=== PATIENT | male | born 1985 | race Caucasian/White ===

== ENCOUNTER 2020-06-04 15:56 | Observation (INO) | payer OTHER ==
[~2020-06-04] VITALS: Ht 170.2 cm; Wt 62.3 kg
[2020-06-04] MEDS ORDERED: ONDANSETRON PF 4 MG/2 ML VIAL. ONE (17:23)
[2020-06-04] MEDS ORDERED: IV NORMAL SALINE 1,000ML 1,000 ML IV ONE ×2 (17:30→18:30)
[2020-06-04] MEDS ORDERED: ONDANSETRON PF 4 MG/2 ML VIAL. IVP ONE (17:30)
[2020-06-04 17:52] LABS: BASO % 1 % (0-3); EOS # 0.2 x10^3/uL (0.0-0.7); EOS % 5 % (0-3); HEMATOCRIT 47.3 % (39.0-53.0); HEMOGLOBIN 16.4 g/dL (13.0-17.5); LYMPH # 1.4 x10^3/uL (1.0-4.8); LYMPH % 30 % (24-48); MEAN CORPUSCULAR HEMOGLOBIN 32 pg (25-35); MEAN CORPUSCULAR HGB CONC 35 g/dL (31-37); MEAN CORPUSCULAR VOLUME 91 fL (79-100); MONO # 0.4 x10^3/uL (0.0-1.1); MONO % 8 % (0-9); NEUT # 2.7 x10^3uL (1.8-7.7); NEUT % 57 % (31-73); PLATELET COUNT 238 x10^3/uL (140-400); RED BLOOD COUNT 5.21 x10^6/uL (4.30-5.70); RED CELL DISTRIBUTION WIDTH 14.4 % (11.5-14.5); WHITE BLOOD COUNT 4.8 x10^3/uL (4.0-11.0)
--- NOTE | 2020-06-04 18:05 | PHYS DOC ---
Past History Past Medical History: Cancer Additional Past Medical Histor: ulcerative colitis, lymphoma of small bowel, PTSD (JOB RAMSEY APRN) Past Surgical History: No Surgical History (JOB RAMSEY APRN) Smoking: Cigarettes (JOB RAMSEY APRN) General Adult EDM: Chief Complaint: ABDOMINAL PAIN HPI: HPI: Patient is a 35-year-old male who presents to the emergency department today with complaints of nausea, vomiting, and diarrhea. Patient states his symptoms started 4 days ago as diarrhea. He states he has not had diarrhea for the past 3 days but he has not been unable to keep any fluids down. He denies any blood in his stool or his emesis. Patient denies any fever, cough, shortness of breath, body aches, chest pain, or palpitations. He complains of diffuse abdominal pain. Patient reports history of ulcerative colitis and having lymphoma in his small bowel. Patient reports he was diagnosed with the cancer in his small bowel last fall, he reports that he is not under treatment for this cancer he was told that it is very slow moving. Patient denies any known COVID- 19 exposure. He currently rates his pain a 10 out of 10 on the pain scale, he denies any alleviating factors. (JOB RAMSEY APRN) Review of Systems: Review of Systems: Complete ROS is negative unless otherwise noted in HPI. (JOB RAMSEY APRN) Current Medications: Current Meds: Current Medications Medications (Trade) Dose Ordered Sig/Brenda Start Time Stop Time Status Last Admin Dose Admin Ondansetron HCl (Zofran) 4 mg 1X ONCE 06/04/20 17:30 06/04/20 17:47 DC Sodium Chloride 1,000 ml @ 1,000 mls/hr 1X ONCE 06/04/20 17:30 06/04/20 18:29 (JOB RAMSEY APRN) Allergies: Allergies: Allergies Coded Allergies Type Severity Reaction Last Updated Verified peanut Allergy Unknown 06/04/20 Yes (JOB RAMSEY APRN) Physical Exam: PE: See Above Constitutional: Well developed, well nourished, moderate distress, ill- appearing, appears frail HENT: Normocephalic, atraumatic, bilateral external ears normal, nose normal; dry mucous membranes. [] Eyes: PERRLA, EOMI, conjunctiva normal, no discharge. [] Neck: Normal range of motion, no stridor. [] Cardiovascular:Heart rate regular rhythm Lungs & Thorax: Respirations even and unlabored, no retractions, no respiratory distress Abdomen: soft, diffuse tenderness to palpation, no rebound tenderness, no guarding, no palpable mass Skin: Warm, dry, no erythema, no rash. [] Extremities: No cyanosis, ROM intact, no edema. [] Neurologic: Alert and oriented X 3, normal motor, normal sensory no focal deficits noted. [] Psychologic: Affect normal, judgement normal, mood normal. [] (JOB RAMSEY APRN) EKG: EKG: [] (JOB RAMSEY APRN) Radiology/Procedures: Radiology/Procedures: PROCEDURE: CT ABD PELV W/ IV CONTRST ONLY CT SCAN OF THE ABDOMEN AND PELVIS WITH IV CONTRAST. History: Reason: Left sided abdominal pain, N/V/D: Comparison:None. Procedure: Contiguous axial images of the abdomen and pelvis were performed after the administration of 75 cc of Omni 300 IV contrast. Oral contrast: No. Findings: The gallbladder is normal. The appendix is normal. The prostate is not significantly enlarged. Liver: Hypoattenuating Spleen: Unremarkable Pancreas: Unremarkable Adrenal Glands: Unremarkable Kidneys: Unremarkable There is no mass or lymphadenopathy. There is no free air. There is no free fluid. The urinary bladder appears normal. Impression: Fatty infiltration of the liver. No acute findings. End impression[] (JOB RAMSEY APRN) Heart Score: Risk Factors: Risk Factors: DM, Current or recent (<one month) smoker, HTN, HLP, family history of CAD, obesity. Risk Scores: Score 0 - 3: 2.5% MACE over next 6 weeks - Discharge Home Score 4 - 6: 20.3% MACE over next 6 weeks - Admit for Clinical Observation Score 7 - 10: 72.7% MACE over next 6 weeks - Early Invasive Strategies (JOB RAMSEY APRN) Course & Med Decision Making: Course & Med Decision Making Pertinent Labs and Imaging studies reviewed. (See chart for details) 2030-spoke with Dr. Wood who is the admitting physician, and care was assumed following discussion of patient. Will admit patient for intractable nausea vomiting, and abdominal pain. Will do urine drug screen, CRP, and LDH as requested. Patient's vital signs stable. Patient remains afebrile, appears nontoxic, respirations even and unlabored. Patient will be admitted to the med/surge floor. Patient's case and plan of care also discussed with Dr. Griffiths [] (JOB RAMSEY APRN) Dragon Disclaimer: Dragon Disclaimer: This electronic medical record was generated, in whole or in part, using a voice recognition dictation system. (JOB RAMSEY APRN) Departure Departure: Impression: Primary Impression: Intractable nausea and vomiting Additional Impression: Abdominal pain Qualified Codes: R10.84 - Generalized abdominal pain Disposition: ADMITTED INPT THIS HOSP Admitting Physician: Xenia Wood (JOB RAMSEY APRN) Condition: STABLE Referrals: PCP,UNKNOWN (PCP) Attending Signature Attending Signature I have reviewed the PA/FOUNDRY TECHNICIAN's note and plan of care. I was available for consultation as needed during the patient's visit in the emergency department. I agree with the clinical impression, plan, and disposition. (BART GRIFFITHS DO) JOB RAMSEY APRN Jun 04, 2020 18:05 BART GRIFFITHS DO Jun 04, 2020 23:12
[2020-06-04 18:08] LABS: CALCIUM 9.9 mg/dL (8.5-10.1); CREATININE 0.8 mg/dL (0.7-1.3); GFR 111.3; POTASSIUM 3.6 mmol/L (3.5-5.1)
[2020-06-04 18:13] LABS: ALBUMIN 4.4 g/dL (3.4-5.0); ALBUMIN/GLOBULIN RATIO 1.3 (1.0-1.7); MAGNESIUM 2.2 mg/dL (1.8-2.4); TOTAL BILIRUBIN 0.5 mg/dL (0.2-1.0); TOTAL PROTEIN 7.9 g/dL (6.4-8.2)
[2020-06-04] MEDS ORDERED: FAMOTIDINE 20 MG/2 ML VIAL IVP ONE (18:30)
[2020-06-04] MEDS ORDERED: MORPHINE SULFATE 4 MG/ML DISP.SYRIN. IV ONE (18:30)
[2020-06-04] MEDS ORDERED: IOHEXOL 300 MG/ML 75 ML VIAL. IV ONE (19:15)
[2020-06-04] MEDS ORDERED: LIDO:MAALOX 1:1 20 ML SINGLE DOSE. PO ONE (19:15)
[2020-06-04 19:28] LABS: BILIRUBIN,URINE NEG (NEG); CLARITY,URINE CLEAR; COLOR,URINE YELLOW; GLUCOSE,URINE NEG (NEG)
[2020-06-04 19:29] LABS: BACTERIA,URINE 0 /HPF (0-FEW); NITRITE,URINE NEG (NEG); RBC,URINE 0 /HPF (0-2); SQUAMOUS EPITHELIAL CELL,UR OCC /LPF; UROBILINOGEN,URINE 0.2 mg/dL (0.2 mg/dL); WBC,URINE 0 /HPF (0-4)
[2020-06-04] MEDS ORDERED: PROCHLORPERAZINE 10 MG/2 ML VIAL. IV ONE (19:45)
--- NOTE | 2020-06-04 19:58 | RAD ---
CT SCAN OF THE ABDOMEN AND PELVIS WITH IV CONTRAST. History: Reason: Left sided abdominal pain, N/V/D: Comparison:None. Procedure: Contiguous axial images of the abdomen and pelvis were performed after the administration of 75 cc o f Omni 300 IV contrast. Oral contrast: No. Findings: The gallbladder is normal. The appendix is normal. The prostate is not significantly enlarged. Liver: Hypoattenuating Spleen: Unremarkable Pancreas: Unremarkable Adrenal Glands: Unremarkable Kidneys: Unremarkable There is no mass or lymphadenopathy. There is no free air. There is no free fluid. The urinary bladder appears normal. Impression: Fatty infiltration of the liver. No acute findings. End impression PQRS Compliance Statement: One or more of the following individualized dose reduction techniques were utilized for this examinat ion: 1. Automated exposure control 2. Adjustment of the mA and/or kV according to patient size 3. Use of iterative reconstruction technique Electronically signed by: Norm Pena III, MD (06/04/2020 7:56 PM) [facility]
[2020-06-04 20:51] LABS: BARBITURATES NEG (NEG); BENZODIAZEPINES NEG (NEG); CANNABINOIDS NEG (NEG); COCAINE NEG (NEG); METHADONE NEG (NEG); OPIATES NEG (NEG); PHENCYCLIDINE NEG (NEG)
[2020-06-04 20:52] LABS: AMPHETAMINE/METHAMPHETAMINE NEG (NEG)
[2020-06-04 20:53] LABS: C REACTIVE PROTEIN < 0.5 mg/L (0-3.3); LACTATE DEHYDROGENASE 180 U/L (85-227)
[2020-06-04 20:58] VITALS: BP 119/76
[2020-06-04] MEDS: IV NORMAL SALINE 1,000ML 1,000 ML IV SCH (21:35)
--- NOTE | 2020-06-05 00:03 | NUR ---
The patient, BRIAN RODRIGUEZ, 35 y/o, M admitted by KAREN GUSMAN MD, was given written information regarding hospital policies, unit procedures and contact persons. Valuables were checked and vital signs obtained. PT with abdominal pain for 1 week, increasing with nausea and vomiting today. PT is visiting his mother from [place]. Mother and step-father are COVID+. PT had a COVID swab performed Monday, 05/29, resulted negative 06/[facility]. PT is unsure of dosages of medications and exact medications. Call to be placed to pharmacy when open in am.
[2020-06-05] MEDS: MORPHINE SULFATE 4 MG/ML DISP.SYRIN. IVP PRN ×2 (00:21→05:42)
[2020-06-05] MEDS: ONDANSETRON PF 4 MG/2 ML VIAL. IVP PRN ×2 (03:59→10:51)
[2020-06-05] MEDS: IV NORMAL SALINE 1,000ML 1,000 ML IV SCH (05:38)
[2020-06-05 06:16] VITALS: BP 112/71
[2020-06-05] MEDS ORDERED: HYDROcodone/APAP 5/325MG 1 TAB TABLET PO PRN (08:30)
[2020-06-05] MEDS ORDERED: MORPHINE SULFATE 4 MG/ML DISP.SYRIN. IVP PRN (08:30)
[2020-06-05 10:36] VITALS: BP 109/71
--- NOTE | 2020-06-05 14:32 | NUR ---
PATIENT IS DISCHARGED HOME. DISCHARGE INSTRUCTION REVIEWED, PATIENT VERBALIZED UNDERSTANDING. PATIENT LEFT ROOM VIA AMBULATION ACCOMP BY STAFF. PATIENT TAKEN HOME MY FAMILY MEMBER VIA PERSONAL VEHICLE.
--- NOTE | 2020-06-05 14:43 | HP ---
ADMIT DATE: HISTORY OF PRESENT ILLNESS: The patient is a 35-year-old male patient who came to the Emergency Room complaining of nausea, vomiting and diarrhea. He stated that the patient has ____ symptoms started about 4 days ago with diarrhea. He stated that he has not had diarrhea for the past 3 days, but has not been able to keep any fluids down. Denied any blood in his stool or his emesis. Denied any fever, cough, shortness of breath, body ache, chest pain or palpitation. Did complain of diffuse abdominal pain. 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 The patient reports he was diagnosed with the cancer in his small bowel last fall. Reports that he is not under treatment for this cancer as he was told it was very slow moving. The patient denies any history of exposure to COVID-19. He currently rates his pain as about 10/10 on the pain scale. He denied any alleviating factors. He was extensively investigated in the Emergency Room and has had lab work and CT scan of the abdomen and was admitted. Continued IV fluid, IV pain medication, antiemetic. PAST MEDICAL HISTORY: According to him, the patient is known to have hypertension, marginal cell lymphoma, ulcerative colitis, Ronquillo's esophagus. PAST SURGICAL HISTORY: Remarkable for esophagogastroduodenoscopy x 3 and colonoscopy x 2. ALLERGIES: He has no known drug allergies. MEDICATIONS: He is currently on lisinopril, Imitrex, Nexium and budesonide. FAMILY HISTORY: He has one brother older and healthy. Both parents are alive and healthy. SOCIAL HISTORY: , has no children. Quit smoking 4-5 years ago. Drinks alcohol occasionally. He does not have used any drugs. He is a retired based on his medical condition. He is now a student studying Economics. REVIEW OF SYSTEMS: As per history of present illness. PHYSICAL EXAMINATION: GENERAL: On arrival to the Emergency Room, he looked well and was clearly in no apparent respiratory distress. No pallor, jaundice, cyanosis or thyromegaly. No jugular venous distention. No limb edema. VITAL SIGNS: His heart rate was 55, blood pressure was 112/71, temperature 97.4, respiratory rate was 16, and oxygen saturation was 99% on room air. HEAD, EYES, EARS, NOSE AND THROAT: Showed normocephalic, atraumatic. NECK: Supple. HEART: Showed normal first and second heart sounds. No gallop, rub or murmur. CHEST: Clear to auscultation. No crepitation or rhonchi. ABDOMEN: Distended, soft, nontender. No guarding or rigidity. No organomegaly. All hernial orifice intact. Bowel sounds normal. NEUROLOGIC: He was awake and alert x 3. Normal motor and sensory function. LABORATORY DATA: His lab work on arrival showed a white cell count of 4800, hemoglobin 16, hematocrit 47, MCV 91, and platelet count 238,000. Serum sodium was 143, potassium 3.6, chloride 100, bicarbonate 33, anion gap of 10, BUN 7, creatinine 0.8, estimated GFR was 111. His glucose was 80, lactic acid was 3.7, calcium was 9.9, magnesium was 2.2. Total bilirubin and alkaline phosphatase is normal. AST, ALT are elevated. His lactate dehydrogenase was only 180. C-reactive protein was 0.5. Total protein 7.9, albumin was 4.4. Serum lipase was 72. Urinalysis was essentially unremarkable and toxic screen was positive for alcohol, although it was only qualitative, not quantitative. IMAGING DATA: The patient has a CT scan of the abdomen and pelvis, which showed that the patient's gallbladder is normal. The appendix is normal. The prostate is not significantly enlarged. His liver, spleen, pancreas, adrenal glands and kidneys are unremarkable. There are no masses or lymphadenopathy. There is no free air. No free fluid. The urinary bladder appears normal. The liver is hypoattenuating and only abnormality is probably fatty infiltration of the liver, but no acute findings. ASSESSMENT AND PLAN: The patient was admitted and was started on IV fluid, IV in the form of normal saline at 125. He has had hydrocodone and ondansetron. We will obviously follow him closely and decide on further management accordingly. KAREN GUSMAN MD DR: BHARAT/cony JOB#: [id number] / [id number]
--- NOTE | 2020-06-05 14:46 | DS ---
DATE OF DISCHARGE: 06/04/2020 HOSPITAL COURSE: The patient was admitted yesterday with recurrent bouts of nausea, vomiting, was started on IV fluid, antiemetic and pain medication. He did very well. He actually ate his breakfast and lunch without any difficulty. PHYSICAL EXAMINATION: GENERAL: When I saw him this afternoon, he looked well and was clearly in no apparent respiratory distress. No pallor, jaundice, cyanosis, or thyromegaly. No jugular venous distention or limb edema. VITAL SIGNS: His heart rate was 74, blood pressure was 109/71, temperature was 99.3, respiratory rate was 18 and oxygen saturation was 97%. HEAD, EYES, EARS, NOSE AND THROAT: Showed normocephalic, atraumatic. NECK: Supple. HEART: Showed normal first and second heart sounds. No gallop, rub or murmur. CHEST: Clear to auscultation. No crepitation or rhonchi. ABDOMEN: Slightly distended, soft, nontender. NEUROLOGIC: He is grossly intact. He has been up and about without any complaint. As all his lab work are within normal range, his CT scan was unremarkable, his LDH was normal and C-reactive protein only 0.5 mg, the patient was discharged home to continue on all his medications including his Nexium, lisinopril, Imitrex and budesonide. FINAL DISCHARGE DIAGNOSES: Nausea and vomiting, resolved. The patient carries a diagnosis of hypertension, marginal cell lymphoma, ulcerative colitis and Ronquillo's esophagus. KAREN GUSMAN MD DR: BHARAT/cony JOB#: [id number] / [id number]
== END 2020-06-05 14:30 | disposition home or self-care (01) ==
LOC: ER 15:56 → 1 SOUTH 20:30 → ER 20:46
PROVIDERS: ADMIT Internal Medicine; ATTEND Internal Medicine
DX: R11.2 Nausea with vomiting, unspecified (principal); R19.7 Diarrhea, unspecified; R10.84 Generalized abdominal pain; I10 Essential (primary) hypertension; C88.4 Extranodal marginal zone B-cell lymphoma of mucosa-associated lymphoid tissue [MALT-lymphoma]; K51.90 Ulcerative colitis, unspecified, without complications; K22.70 Barrett's esophagus without dysplasia; K76.0 Fatty (change of) liver, not elsewhere classified; E11.9 Type 2 diabetes mellitus without complications; F43.10 Post-traumatic stress disorder, unspecified; E78.5 Hyperlipidemia, unspecified; Z87.891 Personal history of nicotine dependence; Z98.890 Other specified postprocedural states; Z79.899 Other long term (current) drug therapy
CPT/HCPCS: 36415; 74177; 80053; 80307; 81001; 83605; 83615; 83690; 83735; 85025; 86140; 96361; 96374; 96375; 96376; 99285; G0378; J0780; J2270; J2405; J3490; J7030; Q9967; G0379

== ENCOUNTER 2020-06-07 00:41 | Emergency (ER) | payer OTHER ==
[~2020-06-07] VITALS: Ht 170.2 cm; Wt 61.3 kg
--- NOTE | 2020-06-07 01:13 | PHYS DOC ---
Past History Past Medical History: Cancer Additional Past Medical Histor: ulcerative colitis, lymphoma of small bowel, PTSD Past Surgical History: No Surgical History Smoking: Cigarettes Alcohol Use: Occasionally Adult General Chief Complaint Chief Complaint: ABDOMINAL PAIN HPI HPI Patient is a 35-year-old male with a past medical history of Crohn's disease, who was discharged from the hospital 2 days ago who presents to the emergency department with abdominal pain. States when he was discharged 2 days ago he was feeling better but over the last couple of days he has began to have symptoms again including generalized abdominal pain, 7 out of 10, sharp in nature with an episode of nonbloody nonbilious emesis. States he had 2 episodes of diarrhea/soft stool. Denies any fevers, Covid/flu symptoms other than noted, chest pain, shortness of breath, dysuria, hematuria or blood in the stool. States he is here in [place] visiting his mom and lives in [place]. States he does have a GI doc in [place]. Review of Systems Review of Systems Review of systems otherwise unremarkable except noted in HPI. Allergies Allergies Allergies Coded Allergies Type Severity Reaction Last Updated Verified peanut Allergy Unknown 06/04/20 Yes Physical Exam Physical Exam Constitutional: Well developed, well nourished, no acute distress, non-toxic appearance. [] HENT: Normocephalic, atraumatic, oropharynx moist, no oral exudates, nose normal. [] Eyes: PERRLA, EOMI, conjunctiva normal, no discharge. [] Neck: Normal range of motion, no tenderness, supple, no stridor. [] Cardiovascular:Heart rate regular rhythm, no murmur [] Lungs & Thorax: Bilateral breath sounds clear to auscultation [] Abdomen: Bowel sounds normal, soft, umbilicus and generalized tenderness with no rebound or guarding, negative Yeager's, negative McBurney's no masses, no pulsatile masses. [] Skin: Warm, dry, no erythema, no rash. [] Back: No tenderness, no CVA tenderness. [] Extremities: No tenderness, no cyanosis, no clubbing, ROM intact, no edema. [] Neurologic: Alert and oriented X 3, normal motor function, normal sensory function, no focal deficits noted. [] Psychologic: Affect normal, judgement normal, mood normal. [] Current Patient Data Lab Results Laboratory Tests Test 06/07/20 00:57 06/07/20 01:40 Urine Collection Type Unknown Urine Color Yellow Urine Clarity Clear Urine pH 8.5 Urine Specific Denhoff 1.020 Urine Protein Neg (NEG-TRACE) Urine Glucose (UA) Neg mg/dL (NEG) Urine Ketones (Stick) Neg mg/dL (NEG) Urine Blood Trace (NEG) Urine Nitrite Neg (NEG) Urine Bilirubin Neg (NEG) Urine Urobilinogen Dipstick 0.2 mg/dL (0.2 mg/dL) Urine Leukocyte Esterase Neg (NEG) Urine RBC Rare /HPF (0-2) Urine WBC 0 /HPF (0-4) Urine Squamous Epithelial Cells Occ /LPF Urine Bacteria 0 /HPF (0-FEW) White Blood Count 4.4 x10^3/uL (4.0-11.0) Red Blood Count 4.58 x10^6/uL (4.30-5.70) Hemoglobin 14.4 g/dL (13.0-17.5) Hematocrit 42.7 % (39.0-53.0) Mean Corpuscular Volume 93 fL (79-100) Mean Corpuscular Hemoglobin 31 pg (25-35) Mean Corpuscular Hemoglobin Concent 34 g/dL (31-37) Red Cell Distribution Width 14.8 % (11.5-14.5) Platelet Count 196 x10^3/uL (140-400) Neutrophils (%) (Auto) 57 % (31-73) Lymphocytes (%) (Auto) 28 % (24-48) Monocytes (%) (Auto) 9 % (0-9) Eosinophils (%) (Auto) 6 % (0-3) Basophils (%) (Auto) 1 % (0-3) Neutrophils # (Auto) 2.5 x10^3uL (1.8-7.7) Lymphocytes # (Auto) 1.2 x10^3/uL (1.0-4.8) Monocytes # (Auto) 0.4 x10^3/uL (0.0-1.1) Eosinophils # (Auto) 0.2 x10^3/uL (0.0-0.7) Basophils # (Auto) 0.0 x10^3/uL (0.0-0.2) Sodium Level mmol/L (136-145) Potassium Level mmol/L (3.5-5.1) Chloride Level mmol/L (98-107) Carbon Dioxide Level 30 mmol/L (21-32) Anion Gap -15 (6-14) Blood Urea Nitrogen mg/dL (8-26) Creatinine 0.8 mg/dL (0.7-1.3) Estimated GFR (Cockcroft-Gault) 111.3 BUN/Creatinine Ratio 1 (6-20) Glucose Level 108 mg/dL (70-99) Lactic Acid Level 1.9 mmol/L (0.4-2.0) Calcium Level 8.7 mg/dL (8.5-10.1) Total Bilirubin 0.3 mg/dL (0.2-1.0) Aspartate Amino Transf (AST/SGOT) 103 U/L (15-37) Alanine Aminotransferase (ALT/SGPT) 249 U/L (16-63) Alkaline Phosphatase 72 U/L (46-116) C-Reactive Protein 3.5 mg/L (0-3.3) Total Protein 6.9 g/dL (6.4-8.2) Albumin 2.9 g/dL (3.4-5.0) Albumin/Globulin Ratio 0.7 (1.0-1.7) Lipase 35 U/L (73-393) EKG EKG [] Radiology/Procedures Radiology/Procedures []T abdomen and pelvis with contrast PQRS statement: CT scans at this facility use dose reduction including either automated exposure control, iterative reconstructions, and /or weight based radiation dosing via mA and kV modification when appropriate to reduce radiation dose to as low as reasonably achievable. HISTORY: Abdominal pain. Contrast: 75 mL Omnipaque 300 intravenous contrast. COMPARISON: CT abdomen and pelvis May 27, 2020. Abdomen findings: Lung bases unremarkable. Shallow disc bulges lumbar spine. Hypodense liver likely fatty with focal fat of the falciform ligament. Gallbladder, pancreas, spleen, adrenal glands and kidneys are unremarkable. The appendix is negative. There is some mild fluid distended small bowel loops present however there is no inflammatory change evident and there is no transition point to suggest obstruction. No abdominal fluid or adenopathy. Pelvis findings: Bladder, prostate, rectum and bones are unremarkable. No fluid or adenopathy. IMPRESSION: No acute process. Appendix is negative. Hypodense liver likely fatty. Stable exam. Electronically signed by: Yobany Llamas MD (06/07/2020 2:45 AM) [facility] Heart Score Risk Factors: Risk Factors: DM, Current or recent (<one month) smoker, HTN, HLP, family history of CAD, obesity. Risk Scores: Risk Factors: DM, Current or recent (<one month) smoker, HTN, HLP, family history of CAD, obesity. Course & Med Decision Making Course & Med Decision Making Patient is a 35-year-old male with ulcerative colitis who presents with abdominal pain and nausea vomiting Vital signs not concerning. Physical exam noted above. Patient placed on the monitor with IV access established. Started IV fluid resuscitation. Given Zofran for nausea and morphine for pain. Laboratory analysis notable for mildly elevated liver enzymes. CT showing probable fatty liver and mild fluid in the small bowels but no signs of inflammation or obstruction. On reassessment patient feeling better. Discussed all findings with patient and advised to follow-up first thing Monday morning with his primary care physician, eat a light diet over the next few days including lots of fluids and take his pain medications as prescribed. Patient grateful, verbalized understanding and agreed with plan of discharge. [] Dragon Disclaimer Dragon Disclaimer This electronic medical record was generated, in whole or in part, using a voice recognition dictation system. Departure Departure: Impression: Primary Impression: Abdominal pain Additional Impressions: Diarrhea Nausea Fatty liver Referrals: CORKY ARNETT MD Scripts Hydrocodone Bit/Acetaminophen (HYDROCODONE-APAP 5-325 ) 1 Each Tablet 1 TAB PO PRN Q6HRS PRN for PAIN for 3 Days, #12 TAB 0 Refills Prov: BONNIE POWELL MD 06/07/20 Ondansetron Hcl (ZOFRAN) 4 Mg Tablet 1 TAB PO PRN Q6HRS PRN for NAUSEA, #6 TAB Prov: BONNIE POWELL MD 06/07/20 Problem Qualifiers BONNIE POWELL MD Jun 07, 2020 01:13
[2020-06-07] MEDS ORDERED: MORPHINE SULFATE 4 MG/ML DISP.SYRIN. IV ONE (01:30)
[2020-06-07] MEDS ORDERED: IV RINGERS SOLUTION,LACTATED 1,000 ML IV ONE (01:30)
[2020-06-07] MEDS ORDERED: ONDANSETRON PF 4 MG/2 ML VIAL. IVP ONE (01:30)
[2020-06-07] MEDS ORDERED: CONTRAST GIVEN. MC PRN (01:45)
[2020-06-07 01:53] LABS: BACTERIA,URINE 0 /HPF (0-FEW); BILIRUBIN,URINE NEG (NEG); CLARITY,URINE CLEAR; COLOR,URINE YELLOW; GLUCOSE,URINE NEG (NEG); NITRITE,URINE NEG (NEG); RBC,URINE RARE /HPF (0-2); SQUAMOUS EPITHELIAL CELL,UR OCC /LPF; UROBILINOGEN,URINE 0.2 mg/dL (0.2 mg/dL); WBC,URINE 0 /HPF (0-4)
[2020-06-07] MEDS ORDERED: IOHEXOL 300 MG/ML 75 ML VIAL. IV ONE (02:00)
[2020-06-07 02:02] LABS: BASO % 1 % (0-3); EOS # 0.2 x10^3/uL (0.0-0.7); EOS % 6 % (0-3); HEMATOCRIT 42.7 % (39.0-53.0); HEMOGLOBIN 14.4 g/dL (13.0-17.5); LYMPH # 1.2 x10^3/uL (1.0-4.8); LYMPH % 28 % (24-48); MEAN CORPUSCULAR HEMOGLOBIN 31 pg (25-35); MEAN CORPUSCULAR HGB CONC 34 g/dL (31-37); MEAN CORPUSCULAR VOLUME 93 fL (79-100); MONO # 0.4 x10^3/uL (0.0-1.1); MONO % 9 % (0-9); NEUT # 2.5 x10^3uL (1.8-7.7); NEUT % 57 % (31-73); PLATELET COUNT 196 x10^3/uL (140-400); RED BLOOD COUNT 4.58 x10^6/uL (4.30-5.70); RED CELL DISTRIBUTION WIDTH 14.8 % (11.5-14.5); WHITE BLOOD COUNT 4.4 x10^3/uL (4.0-11.0)
[2020-06-07 02:36] LABS: ALBUMIN 2.9 g/dL (3.4-5.0); ALBUMIN/GLOBULIN RATIO 0.7 (1.0-1.7); ALK PHOS 72 U/L (46-116); ALT (SGPT) 249 U/L (16-63); ANION GAP -15 (6-14); AST (SGOT) 103 U/L (15-37); C REACTIVE PROTEIN 3.5 mg/L (0-3.3); CARBON DIOXIDE 30 mmol/L (21-32); CREATININE 0.8 mg/dL (0.7-1.3); GFR 111.3; GLUCOSE 108 mg/dL (70-99); LIPASE 35 U/L (73-393); TOTAL BILIRUBIN 0.3 mg/dL (0.2-1.0); TOTAL PROTEIN 6.9 g/dL (6.4-8.2)
[2020-06-07 02:50] LABS: BUN/CREATININE RATIO 1 (6-20)
[2020-06-07 02:53] LABS: CALCIUM 8.7 mg/dL (8.5-10.1)
--- NOTE | 2020-06-07 03:01 | RAD ---
CT abdomen and pelvis with contrast PQRS statement: CT scans at this facility use dose reduction including either automated exposure cont rol, iterative reconstructions, and /or weight based radiation dosing via mA and kV modification when appropriate to reduce radiation dose to as low as reasonably achievable. HISTORY: Abdominal pain. Contrast: 75 mL Omnipaque 300 intravenous contrast. COMPARISON: CT abdomen and pelvis May 27, 2020. Abdomen findings: Lung bases unremarkable. Shallow disc bulges lumbar spine. Hypodense liver likely f atty with focal fat of the falciform ligament. Gallbladder, pancreas, spleen, adrenal glands and kidn eys are unremarkable. The appendix is negative. There is some mild fluid distended small bowel loops present however there is no inflammatory change evident and there is no transition point to suggest o bstruction. No abdominal fluid or adenopathy. Pelvis findings: Bladder, prostate, rectum and bones are unremarkable. No fluid or adenopathy. IMPRESSION: No acute process. Appendix is negative. Hypodense liver likely fatty. Stable exam. Electronically signed by: Yobany Llamas MD (06/07/2020 2:45 AM) [facility]
[2020-06-07] MEDS ORDERED: ACETAMINOPHEN 500 MG TABLET PO ONE ×2 (03:04→03:30)
[2020-06-07] MEDS ORDERED: MORPHINE SULFATE 2 MG/ML DISP.SYRIN. ONE (03:04)
[2020-06-07] MEDS ORDERED: MORPHINE SULFATE 2 MG/ML DISP.SYRIN. IV ONE (03:30)
[2020-06-07 03:40] VITALS: BP 113/75
[2020-06-07] MEDS ORDERED: HYDR-2155 PO (03:40)
[2020-06-07] MEDS ORDERED: ONDA4TAB7 PO (03:40)
== END 2020-06-07 03:48 | disposition home or self-care (01) ==
LOC: ER 00:41
DX: R10.84 Generalized abdominal pain (principal); R19.7 Diarrhea, unspecified; R11.2 Nausea with vomiting, unspecified; K76.0 Fatty (change of) liver, not elsewhere classified; F43.10 Post-traumatic stress disorder, unspecified; F17.210 Nicotine dependence, cigarettes, uncomplicated; Z85.9 Personal history of malignant neoplasm, unspecified; Z91.010 Allergy to peanuts
CPT/HCPCS: 36415; 74177; 80053; 81001; 83605; 83690; 85025; 86140; 96361; 96374; 96375; 96376; 99285; J2270; J2405; J7120; Q9967

== ENCOUNTER 2020-06-10 15:52 | Emergency (ER) | payer OTHER ==
[~2020-06-10] VITALS: Ht 322.6 cm; Wt 61.3 kg
[~2020-06-10 15:52] MED LIST: HYDR-2155 PO; ONDA4TAB7 PO
[2020-06-10] MEDS ORDERED: FAMOTIDINE 20 MG/2 ML VIAL IVP ONE (16:15)
[2020-06-10] MEDS ORDERED: DEXAMETHASONE SOD PHOS 10 MG/ML VIAL. IV ONE (16:15)
[2020-06-10] MEDS ORDERED: IV NORMAL SALINE 1,000ML 1,000 ML IV ONE ×2 (16:15→17:30)
[2020-06-10] MEDS ORDERED: KETOROLAC 15 MG/ML VIAL. IVP ONE (16:15)
[2020-06-10] MEDS ORDERED: ONDANSETRON PF 4 MG/2 ML VIAL. IVP ONE (16:15)
--- NOTE | 2020-06-10 16:37 | PHYS DOC ---
Past History Past Medical History: Anxiety, Depression, GERD, Hypertension, Migraines, Other Additional Past Medical Histor: ulcerative colitis; PTSD; lymphoma-small intestines Past Surgical History: No Surgical History Smoking: Cigarettes Alcohol Use: None General Adult EDM: Chief Complaint: ABDOMINAL PAIN HPI: HPI: Patient is a 35 year old male with Ulcerative Colitis and Marginal B Cell Lymphoma who presents with abdominal pain. He states he feels like he is having a UC flare. He has been seen multiple times within the past week and a half and had multiple abdominal CTs that were unremarkable. Pt states he has not been able to eat very much and has been constipated for the past 4 days. He explains the pain is in his epigastric region and does not radiate elsewhere. It is a constant pain that does not get better or worst with food ingestion. He has vomited several times that is bilious but not bloody. He rates his pain +9/10. Review of Systems: Review of Systems: Constitutional: Denies fever or chills Eyes: Denies redness or eye pain HENT: Denies nasal congestion or sore throat Respiratory: Denies cough or shortness of breath Cardiovascular: Denies chest pain or palpitations GI: Reports abdominal pain, nausea, or vomiting and constipation : Denies dysuria or hematuria Musculoskeletal: Denies back pain or joint pain Integument: Denies rash or skin lesions Neurologic: Denies headache, focal weakness or sensory changes Complete systems were reviewed and found to be within normal limits, except as documented in this note. Current Medications: Current Meds: Current Medications Medications (Trade) Dose Ordered Sig/[facility] Start Time Stop Time Status Last Admin Dose Admin Dexamethasone Sodium Phosphate (Decadron) 10 mg 1X ONCE 06/10/20 16:15 06/10/20 16:16 DC Famotidine (Pepcid Vial) 20 mg 1X ONCE 06/10/20 16:15 06/10/20 16:16 DC Ketorolac Tromethamine (Toradol 15mg Vial) 15 mg 1X ONCE 06/10/20 16:15 06/10/20 16:16 DC Ondansetron HCl (Zofran) 4 mg 1X ONCE 06/10/20 16:15 06/10/20 16:16 DC Sodium Chloride 1,000 ml @ 1,000 mls/hr 1X ONCE 06/10/20 16:15 2/3/21 17:14 Allergies: Allergies: Allergies Coded Allergies Type Severity Reaction Last Updated Verified peanut Allergy Unknown 06/10/20 Yes tomato Allergy Unknown 06/10/20 Yes Physical Exam: PE: Constitutional: Well developed, well nourished, no acute distress, non-toxic appearance HENT: Normocephalic, atraumatic Eyes: PERRL, EOMI, conjunctiva normal, no discharge Neck: Normal range of motion, no tenderness, supple Lungs & Thorax: No respiratory distress, equal chest rise and fall Abdomen: Soft, epigastric tenderness to palpation. No periumbilical tenderness, negative mcburnys tenderness. No rebound or guarding, no peritoneal signs. Skin: Warm, dry, no erythema, no rash Back: No tenderness, no CVA tenderness Extremities: No tenderness, ROM intact, no edema Neurologic: Alert and oriented X 3, normal motor function, normal sensory function, no focal deficits noted Psychologic: Affect normal, judgment normal Current Patient Data: Vital Signs: Vital Signs Date Time Temp Pulse Resp B/P (MAP) Pulse Ox O2 Delivery O2 Flow Rate FiO2 06/10/20 16:08 98.4 108 113/75 (88) EKG: EKG: [] Radiology/Procedures: Radiology/Procedures: [] Course & Med Decision Making: Course & Med Decision Making Pertinent Labs and Imaging studies reviewed. (See chart for details) Jose Lujan is a 35 yo male who presents today with abdominal pain. He was hospitalized for this same pain last week, and had another EM visit earlier this week as well. Both visits he received CT scans that were unremarkable. His labs today showed... He was treated symptomatically and was given a referral for an outpatient guest experience representative. He does have a GI doctor in [place] but he is here for a few more weeks so he agreed that an outpatient GI here would be helpful. Return precautions were reviewed and all questions were answered. Patient stable for discharge with outpatient follow-up with PCP. Discussed findings and plan with patient, who acknowledges understanding and agreement. Balaji Disclaimer: Balaji Disclaimer: This electronic medical record was generated, in whole or in part, using a voice recognition dictation system. Departure Departure: Impression: Primary Impression: Abdominal pain Qualified Codes: R10.13 - Epigastric pain Additional Impressions: Alcohol abuse Lactic acidosis Disposition: 01 DC HOME SELF CARE/HOMELESS Condition: STABLE Referrals: PCP,UNKNOWN (PCP) FREDIS REYNA MD Patient Instructions: Abdominal Pain, [id number], Alcoholic Gastritis-Brief, Clear Liquid Diet, Arnv-dq-Maza, How Much is Too Much Alcohol, Rkmh-vy-Cugn, Lactic Acid, Lactate Scripts Sucralfate (CARAFATE) 1 Gm/10 Ml Oral.susp 10 ML PO QID for Gastritis for 7 Days, #300 ML 0 Refills before food Prov: BART GRIFFITHS DO 06/10/20 Famotidine (PEPCID) 20 Mg Tablet 1 TAB PO BID for Gastritis, #30 TAB Prov: BART GRIFFITHS DO 06/10/20 Ondansetron (ONDANSETRON ODT) 4 Mg Tab.rapdis 1 TAB PO PRN Q6-8HRS PRN for NAUSEA, #16 TAB Prov: BART GRIFFITHS DO 06/10/20 Hyoscyamine Sulfate (LEVSIN-SL) 0.125 Mg Tab.subl 0.125 MG SL Q4-6HRS PRN for PAIN, #14 TAB Prov: BART GRIFFITHS DO 06/10/20 BART GRIFFITHS DO Jun 10, 2020 16:37
[2020-06-10 16:55] LABS: BASO % 1 % (0-3); EOS # 0.1 x10^3/uL (0.0-0.7); EOS % 2 % (0-3); HEMATOCRIT 47.8 % (39.0-53.0); HEMOGLOBIN 16.1 g/dL (13.0-17.5); LYMPH # 1.1 x10^3/uL (1.0-4.8); LYMPH % 21 % (24-48); MEAN CORPUSCULAR HEMOGLOBIN 31 pg (25-35); MEAN CORPUSCULAR HGB CONC 34 g/dL (31-37); MEAN CORPUSCULAR VOLUME 93 fL (79-100); MONO # 0.5 x10^3/uL (0.0-1.1); MONO % 9 % (0-9); NEUT # 3.5 x10^3uL (1.8-7.7); NEUT % 67 % (31-73); PLATELET COUNT 221 x10^3/uL (140-400); RED BLOOD COUNT 5.15 x10^6/uL (4.30-5.70); RED CELL DISTRIBUTION WIDTH 14.9 % (11.5-14.5); WHITE BLOOD COUNT 5.3 x10^3/uL (4.0-11.0)
[2020-06-10 17:07] LABS: CALCIUM 9.2 mg/dL (8.5-10.1); CREATININE 0.8 mg/dL (0.7-1.3); GFR 111.3; POTASSIUM 3.7 mmol/L (3.5-5.1)
[2020-06-10] MEDS ORDERED: LIDO:MAALOX 1:1 20 ML SINGLE DOSE. PO ONE (17:15)
[2020-06-10 17:21] LABS: ALBUMIN 3.9 g/dL (3.4-5.0); ALBUMIN/GLOBULIN RATIO 1.1 (1.0-1.7); MAGNESIUM 1.7 mg/dL (1.8-2.4); TOTAL BILIRUBIN 0.5 mg/dL (0.2-1.0); TOTAL PROTEIN 7.4 g/dL (6.4-8.2)
[2020-06-10] MEDS ORDERED: HYOS0.1265 SL (17:59)
[2020-06-10] MEDS ORDERED: FAMO-63 PO (17:59)
[2020-06-10] MEDS ORDERED: SUCR1ORA5 PO (17:59)
[2020-06-10] MEDS ORDERED: ONDA4TAB12 PO (17:59)
[2020-06-10 18:07] VITALS: BP 143/91
== END 2020-06-10 18:14 | disposition home or self-care (01) ==
LOC: ER 15:52
DX: E87.2 Acidosis (principal); R10.13 Epigastric pain; F10.20 Alcohol dependence, uncomplicated; F41.9 Anxiety disorder, unspecified; F32.9 Major depressive disorder, single episode, unspecified; K21.9 Gastro-esophageal reflux disease without esophagitis; I10 Essential (primary) hypertension; G43.909 Migraine, unspecified, not intractable, without status migrainosus; F43.10 Post-traumatic stress disorder, unspecified; F17.210 Nicotine dependence, cigarettes, uncomplicated; Z91.018 Allergy to other foods; Z91.010 Allergy to peanuts; Y90.6 Blood alcohol level of 120-199 mg/100 ml
CPT/HCPCS: 36415; 80053; 83605; 83690; 83735; 85025; 96361; 96374; 96375; 99284; G0480; J1100; J1885; J2405; J3010; J3490; J7030; 99285-25

== ENCOUNTER 2020-07-05 21:22 | Emergency (ER) | payer OTHER ==
[~2020-07-05] VITALS: Ht 170.2 cm; Wt 76.3 kg
[~2020-07-05 21:22] MED LIST changes: +FAMO-63 PO; +HYOS0.1265 SL; +ONDA4TAB12 PO; +SUCR1ORA5 PO
[2020-07-05 21:31] VITALS: BP 145/98
--- NOTE | 2020-07-05 21:34 | PHYS DOC ---
Past History Past Medical History: Anxiety, Depression, GERD, Hypertension, Migraines, Other Additional Past Medical Histor: ulcerative colitis; PTSD; lymphoma-small intestines (BART ALTAMIRANO APRN) Past Medical History: Anxiety, Constipation, GERD, IBS, Kidney Stones, Prostatitis (YVONNE NASSAR MD) Past Surgical History: No Surgical History (BART ALTAMIRANO APRN) Smoking: Cigarettes Alcohol Use: None (BART ALTAMIRANO APRN) Smoking: Cigarettes (YVONNE NASSAR MD) Adult General Chief Complaint Chief Complaint: FLANK PAIN HPI HPI Patient is a 35-year-old male comes to the emergency department with complaints of kidney stone pain. Patient states he was seen at a local urgent care and was diagnosed with bilateral kidney stones, was given a prescription for Flomax and hydrocodone and was sent home. Patient states that he has ran out of his hydrocodone and his pain is returned, he does not believe he is passed his kidney stones, patient rates his pain a 10/10 on a 1-10 pain scale.. Patient states he has a long standing history of having kidney stones in the past. Adrianne josefa reports that he has a history of ulcerative colitis, marginal B cell lymphoma, PTSD, is a cigarette smoker, denies alcohol use or drug illicit use. Patient states he is from [place], has been visiting his mother and is here for another 2 more weeks before returning to [place]. Patient denies any surgical history, states that he takes lisinopril for high blood pressure, Lunesta, Zyprexa, gabapentin, lithium, Nexium for his PTSD. Patient reports his last kidney stone exacerbation was 3 years ago. Patient denies chest pain, abdominal pain, nausea, vomiting, diarrhea, constipation, recent fever or chills, chest palpitations, chest congestion or nasal congestion. Patient denies loss of taste or loss of smell. Patient denies any other physical complaints or physical concerns. (BART ALTAMIRANO APRN) Review of Systems Review of Systems 14 body systems of review of systems have been reviewed. See HPI for pertinent positives and negative responses, otherwise all other systems are negative, nonpertinent or noncontributory. (BART ALTAMIRANO APRN) Current Medications Current Medications Patient reports taking lisinopril, Lunesta, Zyprexa, gabapentin, lithium, Nexium. (BART ALTAMIRANO APRN) Allergies Allergies Allergies Coded Allergies Type Severity Reaction Last Updated Verified peanut Allergy Unknown 06/10/20 Yes tomato Allergy Unknown 06/10/20 Yes (BART ALTAMIRANO APRN) Physical Exam Physical Exam Constitutional: Well developed, well nourished, no acute distress, non-toxic appearance. Patient is complaint of pain exceeds physical appearance and physical exam. HENT: Normocephalic, atraumatic, bilateral external ears normal, oropharynx moist, no oral exudates, nose normal. Eyes: PERRLA, EOMI, conjunctiva normal, no discharge. Neck: Normal range of motion, no tenderness, supple, no stridor. Cardiovascular:Heart rate regular rhythm, no murmur Lungs & Thorax: Bilateral breath sounds clear to auscultation Abdomen: Bowel sounds normal, soft, no tenderness, no masses, no pulsatile masses. Skin: Warm, dry, no erythema, no rash. Back: No tenderness, bilateral CVA tenderness. Extremities: No tenderness, no cyanosis, no clubbing, ROM intact, no edema. Neurologic: Alert and oriented X 3, normal motor function, normal sensory function, no focal deficits noted. Psychologic: Affect normal, judgement normal, mood normal. (BART ALTAMIRANO APRN) EKG EKG [] (BART ALTAMIRANO APRN) Radiology/Procedures Radiology/Procedures [] (BART ALTAMIRANO APRN) Radiology/[place] [address] IMAGING REPORT Signed PATIENT: BRIAN RODRIGUEZ ACCOUNT: [id number] : 1985 LOCATION: ER AGE: 35 SEX: M EXAM STATUS: REG ER ORD. PHYSICIAN: BART ALTAMIRANO APRN REASON: CVA TENDERNESS BILATERAL, STONE STUDY PROCEDURE: CT ABDOMEN PELVIS WO CONTRAST Exam: CT of abdomen and pelvis without contrast INDICATION: CVA tenderness TECHNIQUE: Sequential axial images through the abdomen and pelvis obtained without IV contrast. Sagittal and coronal reformatted images were reconstructed from the axial data and reviewed. Comparisons: None FINDINGS: Heart size is normal. No pericardial effusion. Visualized lung bases are clear. No pleural effusion. Liver, spleen, pancreas, gallbladder and adrenals are unremarkable. There is mild bilateral hydronephrosis and hydroureter that obstructing stone or lesion identified. No renal or ureteral calculi are seen. No perinephric stranding. Bladder is partially distended and appears thin-walled. Prostate is not enlarged. Large and small bowel are unremarkable. Appendix is normal. No free intra- abdominal air or fluid. No obstruction. Abdominal aorta has a normal course and caliber. No enlarged abdominal lymph nodes are identified. No suspicious osseous lesions or acute fractures. IMPRESSION: Mild bilateral hydronephrosis and distended bladder. Correlate for bladder outlet obstruction. No renal or ureteral calculi. Exposure: One or more of the following in the visualized dose reduction techniques were utilized for this examination: 1. Automated exposure control 2. Adjustment of the MA and/or KV according to patient size 3. Use of iterative of reconstructive technique Electronically signed by: Yen Duffy MD (07/05/2020 10:29 PM) [facility] DICTATED AND SIGNED BY: YEN DUFFY MD DATE: 07/05/202225 CC: BART ALTAMIRANO APRN; YVONNE NASSAR MD; PCP,UNKNOWN ~MTH0 0 IMAGING REPORT Signed PATIENT: BRIAN RODRIGUEZ ACCOUNT: [id number] : 1985 LOCATION: ER AGE: 35 SEX: M EXAM STATUS: REG ER ORD. PHYSICIAN: BART ALTAMIRANO APRN REASON: CVA TENDERNESS BILATERAL, STONE STUDY PROCEDURE: CT ABDOMEN PELVIS WO CONTRAST Exam: CT of abdomen and pelvis without contrast INDICATION: CVA tenderness TECHNIQUE: Sequential axial images through the abdomen and pelvis obtained without IV contrast. Sagittal and coronal reformatted images were reconstructed from the axial data and reviewed. Comparisons: None FINDINGS: Heart size is normal. No pericardial effusion. Visualized lung bases are clear. No pleural effusion. Liver, spleen, pancreas, gallbladder and adrenals are unremarkable. There is mild bilateral hydronephrosis and hydroureter that obstructing stone or lesion identified. No renal or ureteral calculi are seen. No perinephric stranding. Bladder is partially distended and appears thin-walled. Prostate is not enlarged. Large and small bowel are unremarkable. Appendix is normal. No free intra- abdominal air or fluid. No obstruction. Abdominal aorta has a normal course and caliber. No enlarged abdominal lymph nodes are identified. No suspicious osseous lesions or acute fractures. IMPRESSION: Mild bilateral hydronephrosis and distended bladder. Correlate for bladder outlet obstruction. No renal or ureteral calculi. Exposure: One or more of the following in the visualized dose reduction techniques were utilized for this examination: 1. Automated exposure control 2. Adjustment of the MA and/or KV according to patient size 3. Use of iterative of reconstructive technique Electronically signed by: Yen Duffy MD (07/05/2020 10:29 PM) [facility] DICTATED AND SIGNED BY: YEN DUFFY MD DATE: 07/05/202225 CC: BART ALTAMIRANO APRN; YVONNE NASSAR MD; PCP,UNKNOWN ~MTH0 0 (YVONNE NASSAR MD) Heart Score Risk Factors: Risk Factors: DM, Current or recent (<one month) smoker, HTN, HLP, family history of CAD, obesity. Risk Scores: Risk Factors: DM, Current or recent (<one month) smoker, HTN, HLP, family history of CAD, obesity. (BART ALTAMIRANO APRN) Course & Med Decision Making Course & Med Decision Making Pertinent Labs and Imaging studies reviewed. (See chart for details) 35-year-old male, vital signs reviewed, presents to the emergency department with concerns of kidney stone pain. Physical examination was consistent with kidney stone pain. ED work-up for kidney stone study. Patient states he is visiting his mother here from [place], and states he has been here only for a week or 2, states he has a couple more weeks before returning to [place]. An extensive chart review reveals patient has been admitted several times from this emergency department for pain control, patient is also asking ED nurse for stronger pain medicine reporting that he is out of his hydrocodone and needs more. Pending lab results and CT abdomen pelvis at this time. Discussed patient case with ED attending Dr. Nassar who has agreed to assume patient care at this time. Pending labs pending urinalysis pending CT abdomen pelvis without contrast. (BART ALTAMIRANO APRN) Course & Med Decision Making See Adnrea noted for details. Rectal Exam.-Showed large amount of hard stool in rectal vault. Did have a silhouette enlarged prostate with loss of significant sulcus. No gross blood. Has normal male anatomy with descended testicles and circumcision. No saddle loss.., Reviewed with patient his [employer] file-for [place]. Expressed my concerns that he may be having issues with narcotics dependence. Encourage patient to follow- up at [place] clinics here locally if he plans to live here in the [place] area. Recommend he get on the list for urology evaluation for outlet obstruction which is causing hydronephrosis. Patient also to get [facility]If the has actual history of ulcerative colitis and non- Hodgkin's lymphoma of the small bowel need serial follow-ups. Continue mesalamine as previously directed. Continue other meds as previous directed per his [place] record. Patient also need follow-up evaluation of the esophagus for Ronquillo's changes. Recommend patient be on a clear fluid diet for the next 24 to 48 hours allow bowel rest. No solids. No milk products. Return if any concerns. But continuity of care will be important with the list of medical complaints and history as per the patient. Did request further records from [place] of last physical and med list. These results are still pending. Impression: Pt. gives hx of - 1. History of chronic abdomen pain 2. 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 Gives a history of B cell [id number] of the small bowel by biopsy 4. He gives a history of ulcerative colitis by biopsy 5. History of hyperlipidemia 6. History of polysubstance abuse 7. History of alcohol abuse 8. History of allergy to peanuts 9. History of anxiety 10. History of PTSD 11. History of depression 12. History of migraines 13. History of nicotine dependence 14. History of chronic pain 15. Hx. of BPH Recommend patient obtain copy of medical records through the [place] and previous hospital visits where his complete medical history could be verified and records to be entered into system, Did review with patient what appears that he has narcotic seeking behaviors. Recommend patient have 1 provider write for his narcotics and anxiety scripts. Reviewed with patient his findings of normal CBC, electrolytes and UA on visit tonight. Reviewed with patient his findings of alcohol and his usage. Begged patient to establish a primary medical home where he could obtain continuity care and avoid using multiple clinics, hospital emergency departments or urgent care sites for his medical needs. Schedule a visit with [place] and GI as soon as possible. Patient continue his Flomax as previous directed. Take meds as previous directed. Further narcotics and anxiety meds to be filled by his primary care. (YVONNE NASSAR MD) Dragon Disclaimer Dragon Disclaimer This electronic medical record was generated, in whole or in part, using a voice recognition dictation system. (BART ALTAMIRANO APRN) Departure Departure: Referrals: PCP,UNKNOWN (PCP) Balaji Disclaimer This chart was dictated in whole or in part using Voice Recognition software in a busy, high-work load, and often noisy Emergency Department environment. It may contain unintended and wholly unrecognized errors or omissions. (YVONNE NASSAR MD) Dragon Disclaimer This chart was dictated in whole or in part using Voice Recognition software in a busy, high-work load, and often noisy Emergency Department environment. It may contain unintended and wholly unrecognized errors or omissions. (YVONNE NASSAR MD) BART ALTAMIRANO APRN Jul 05, 2020 21:34 YVONNE NASSAR MD Jul 05, 2020 23:28
[2020-07-05] MEDS ORDERED: IV NORMAL SALINE 1,000ML 1,000 ML IV ONE (22:00)
[2020-07-05] MEDS ORDERED: KETOROLAC 30 MG/ML VIAL. IVP ONE (22:00)
[2020-07-05 22:09] LABS: BASO % 1 % (0-3); EOS # 0.4 x10^3/uL (0.0-0.7); EOS % 4 % (0-3); HEMATOCRIT 42.5 % (39.0-53.0); HEMOGLOBIN 14.6 g/dL (13.0-17.5); LYMPH # 2.3 x10^3/uL (1.0-4.8); LYMPH % 27 % (24-48); MEAN CORPUSCULAR HEMOGLOBIN 31 pg (25-35); MEAN CORPUSCULAR HGB CONC 34 g/dL (31-37); MEAN CORPUSCULAR VOLUME 91 fL (79-100); MONO # 0.7 x10^3/uL (0.0-1.1); MONO % 9 % (0-9); NEUT # 4.9 x10^3uL (1.8-7.7); NEUT % 59 % (31-73); PLATELET COUNT 308 x10^3/uL (140-400); RED BLOOD COUNT 4.67 x10^6/uL (4.30-5.70); RED CELL DISTRIBUTION WIDTH 14.2 % (11.5-14.5); WHITE BLOOD COUNT 8.4 x10^3/uL (4.0-11.0)
[2020-07-05 22:25] LABS: BARBITURATES NEG (NEG); BENZODIAZEPINES NEG (NEG); CANNABINOIDS NEG (NEG); COCAINE NEG (NEG); METHADONE NEG (NEG); OPIATES NEG (NEG); PHENCYCLIDINE NEG (NEG)
[2020-07-05 22:28] LABS: AMPHETAMINE/METHAMPHETAMINE NEG (NEG)
[2020-07-05 22:32] LABS: BILIRUBIN,URINE NEG (NEG); CLARITY,URINE CLEAR; GLUCOSE,URINE NEG (NEG); NITRITE,URINE NEG (NEG); UROBILINOGEN,URINE 0.2 mg/dL (0.2 mg/dL)
--- NOTE | 2020-07-05 22:32 | RAD ---
Exam: CT of abdomen and pelvis without contrast INDICATION: CVA tenderness TECHNIQUE: Sequential axial images through the abdomen and pelvis obtained without IV contrast. Sagit gary and coronal reformatted images were reconstructed from the axial data and reviewed. Comparisons: None FINDINGS: Heart size is normal. No pericardial effusion. Visualized lung bases are clear. No pleural effusion. Liver, spleen, pancreas, gallbladder and adrenals are unremarkable. There is mild bilateral hydronephrosis and hydroureter that obstructing stone or lesion identified. N o renal or ureteral calculi are seen. No perinephric stranding. Bladder is partially distended and appears thin-walled. Prostate is not enlarged. Large and small bowel are unremarkable. Appendix is normal. No free intra-abdominal air or fluid. No obstruction. Abdominal aorta has a normal course and caliber. No enlarged abdominal lymph nodes are identified. No suspicious osseous lesions or acute fractures. IMPRESSION: Mild bilateral hydronephrosis and distended bladder. Correlate for bladder outlet obstruction. No safia al or ureteral calculi. Exposure: One or more of the following in the visualized dose reduction techniques were utilized for this examination: 1. Automated exposure control 2. Adjustment of the MA and/or KV according to patient size 3. Use of iterative of reconstructive technique Electronically signed by: Yen Bazzi MD (07/05/2020 10:29 PM) [facility]
[2020-07-05 22:33] LABS: BACTERIA,URINE 0 /HPF (0-FEW); COLOR,URINE COLORLESS; RBC,URINE 0 /HPF (0-2); WBC,URINE OCC /HPF (0-4)
[2020-07-05 22:41] LABS: CALCIUM 8.9 mg/dL (8.5-10.1); CREATININE 1.2 mg/dL (0.7-1.3); GFR 69.7; POTASSIUM 4.1 mmol/L (3.5-5.1)
== END 2020-07-05 23:35 | disposition home or self-care (01) ==
LOC: ER 21:22
DX: R10.9 Unspecified abdominal pain (principal); G89.29 Other chronic pain; E78.5 Hyperlipidemia, unspecified; F19.10 Other psychoactive substance abuse, uncomplicated; F41.9 Anxiety disorder, unspecified; F43.10 Post-traumatic stress disorder, unspecified; F32.9 Major depressive disorder, single episode, unspecified; G43.909 Migraine, unspecified, not intractable, without status migrainosus; F17.210 Nicotine dependence, cigarettes, uncomplicated; I10 Essential (primary) hypertension; F10.10 Alcohol abuse, uncomplicated; K21.9 Gastro-esophageal reflux disease without esophagitis; N40.0 Benign prostatic hyperplasia without lower urinary tract symptoms; K58.9 Irritable bowel syndrome, unspecified; Z87.442 Personal history of urinary calculi; Z91.010 Allergy to peanuts; Z91.018 Allergy to other foods; Y90.0 Blood alcohol level of less than 20 mg/100 ml
CPT/HCPCS: 36415; 74176; 80048; 80307; 81001; 85025; 96361; 96374; 99284; J1885; J7030

== ENCOUNTER 2020-07-16 11:51 | Emergency (ER) | payer OTHER ==
[~2020-07-16] VITALS: Ht 170.2 cm; Wt 76.3 kg
[2020-07-16 12:07] VITALS: BP 121/88
[2020-07-16] MEDS: KETOROLAC 15 MG/ML VIAL. IVP ONE (12:31)
[2020-07-16] MEDS: IV NORMAL SALINE 1,000ML 1,000 ML IV ONE (12:31)
[2020-07-16] MEDS: FAMOTIDINE 20 MG/2 ML VIAL IVP ONE (12:32)
[2020-07-16] MEDS: DEXAMETHASONE SOD PHOS 10 MG/ML VIAL. IVP ONE (12:34)
[2020-07-16 12:51] LABS: BASO % 0 % (0-3); EOS # 0.1 x10^3/uL (0.0-0.7); EOS % 2 % (0-3); HEMOGLOBIN 15.3 g/dL (13.0-17.5); LYMPH # 1.2 x10^3/uL (1.0-4.8); LYMPH % 16 % (24-48); MEAN CORPUSCULAR HEMOGLOBIN 32 pg (25-35); MEAN CORPUSCULAR HGB CONC 36 g/dL (31-37); MEAN CORPUSCULAR VOLUME 91 fL (79-100); MONO # 0.7 x10^3/uL (0.0-1.1); MONO % 9 % (0-9); NEUT # 5.6 x10^3uL (1.8-7.7); NEUT % 73 % (31-73); PLATELET COUNT 263 x10^3/uL (140-400); RED BLOOD COUNT 4.73 x10^6/uL (4.30-5.70); RED CELL DISTRIBUTION WIDTH 14.9 % (11.5-14.5); WHITE BLOOD COUNT 7.7 x10^3/uL (4.0-11.0)
[2020-07-16 12:58] LABS: POTASSIUM ISTAT 3.8 mmol/L (3.5-5.0)
[2020-07-16 13:39] LABS: ALBUMIN 4.2 g/dL (3.4-5.0); MAGNESIUM 2.4 mg/dL (1.8-2.4); TOTAL BILIRUBIN 0.7 mg/dL (0.2-1.0)
[2020-07-16 14:00] LABS: DIRECT BILIRUBIN 0.2 mg/dL (0.0-0.2)
[2020-07-16 14:19] LABS: BILIRUBIN,URINE SMALL (NEG); CLARITY,URINE CLEAR; COLOR,URINE YELLOW; GLUCOSE,URINE NEG (NEG)
[2020-07-16 14:20] LABS: AMORPHOUS SEDIMENT,UR PRESENT /HPF; BACTERIA,URINE 0 /HPF (0-FEW); NITRITE,URINE NEG (NEG); RBC,URINE 0 /HPF (0-2); WBC,URINE 0 /HPF (0-4)
[2020-07-16] MEDS ORDERED: HYOS0.1265 SL (14:28)
[2020-07-16] MEDS ORDERED: ONDA4TAB12 PO (14:28)
--- NOTE | 2020-07-16 14:28 | PHYS DOC ---
Past History Past Medical History: Anxiety, Constipation, GERD, IBS, Kidney Stones, Prostatitis Additional Past Medical Histor: ulcerative colitis; PTSD; lymphoma-small intestines Past Surgical History: No Surgical History Smoking: Cigarettes Alcohol Use: Heavy General Adult EDM: Chief Complaint: GI PROBLEM HPI: HPI: Patient is a [age] year old [sex] who presents with [] Review of Systems: Review of Systems: Constitutional: Denies fever or chills Eyes: Denies change in visual acuity HENT: Denies nasal congestion or sore throat Respiratory: Denies cough or shortness of breath Cardiovascular: Denies chest pain or edema GI: Denies abdominal pain, nausea, vomiting, bloody stools or diarrhea : Denies dysuria Musculoskeletal: Denies back pain or joint pain Integument: Denies rash Neurologic: Denies headache, focal weakness or sensory changes Endocrine: Denies polyuria or polydipsia Lymphatic: Denies swollen glands Psychiatric: Denies depression or anxiety Current Medications: Current Meds: Current Medications Medications (Trade) Dose Ordered Sig/Brenda Start Time Stop Time Status Last Admin Dose Admin Dexamethasone Sodium Phosphate (Decadron) 10 mg 1X ONCE 07/16/20 12:30 07/16/20 12:31 DC 07/16/20 12:34 10 MG Famotidine (Pepcid Vial) 20 mg 1X ONCE 07/16/20 12:15 07/16/20 12:29 DC 07/16/20 12:32 20 MG Ketorolac Tromethamine (Toradol 15mg Vial) 15 mg 1X ONCE 07/16/20 12:15 07/16/20 12:29 DC 07/16/20 12:31 15 MG Sodium Chloride 1,000 ml @ 1,000 mls/hr 1X ONCE 07/16/20 12:15 07/16/20 13:14 DC 07/16/20 12:31 1,000 MLS/HR Allergies: Allergies: Allergies Coded Allergies Type Severity Reaction Last Updated Verified peanut Allergy Unknown 07/05/20 Yes tomato Allergy Unknown 07/05/20 Yes Physical Exam: PE: Constitutional: Well developed, well nourished, no acute distress, non-toxic appearance. [] HENT: Normocephalic, atraumatic, bilateral external ears normal, oropharynx moist, no oral exudates, nose normal. [] Eyes: PERRLA, EOMI, conjunctiva normal, no discharge. [] Neck: Normal range of motion, no tenderness, supple, no stridor. [] Cardiovascular:Heart rate regular rhythm, no murmur [] Lungs & Thorax: Bilateral breath sounds clear to auscultation [] Abdomen: Bowel sounds normal, soft, no tenderness, no masses, no pulsatile masses. [] Skin: Warm, dry, no erythema, no rash. [] Back: No tenderness, no CVA tenderness. [] Extremities: No tenderness, no cyanosis, no clubbing, ROM intact, no edema. [] Neurologic: Alert and oriented X 3, normal motor function, normal sensory function, no focal deficits noted. [] Psychologic: Affect normal, judgement normal, mood normal. [] Current Patient Data: Labs: Laboratory Tests Test 07/16/20 12:09 07/16/20 12:20 07/16/20 13:45 POC Hemoglobin 15.0 gm/dL POC Hematocrit 44 % POC Sodium 137 mmol/L (135-145) POC Potassium 3.8 mmol/L (3.5-5.0) POC Chloride 99 mmol/L (98-110) POC Total CO2 30 mmol/L (23-32) Anion Gap 13 mmol/L (6-14) POC Blood Urea Nitrogen 9 mg/dL (8-26) POC Creatinine 0.8 mg/dL (0.5-1.4) Glucose Level 105 mg/dL (60-99) H POC Ionized Calcium (Sera) 1.25 mmol/L (1.13-1.32) White Blood Count 7.7 x10^3/uL (4.0-11.0) Red Blood Count 4.73 x10^6/uL (4.30-5.70) Hemoglobin 15.3 g/dL (13.0-17.5) Hematocrit 43.0 % (39.0-53.0) Mean Corpuscular Volume 91 fL (79-100) Mean Corpuscular Hemoglobin 32 pg (25-35) Mean Corpuscular Hemoglobin Concent 36 g/dL (31-37) Red Cell Distribution Width 14.9 % (11.5-14.5) H Platelet Count 263 x10^3/uL (140-400) Neutrophils (%) (Auto) 73 % (31-73) Lymphocytes (%) (Auto) 16 % (24-48) L Monocytes (%) (Auto) 9 % (0-9) Eosinophils (%) (Auto) 2 % (0-3) Basophils (%) (Auto) 0 % (0-3) Neutrophils # (Auto) 5.6 x10^3uL (1.8-7.7) Lymphocytes # (Auto) 1.2 x10^3/uL (1.0-4.8) Monocytes # (Auto) 0.7 x10^3/uL (0.0-1.1) Eosinophils # (Auto) 0.1 x10^3/uL (0.0-0.7) Basophils # (Auto) 0.0 x10^3/uL (0.0-0.2) Magnesium Level 2.4 mg/dL (1.8-2.4) Total Bilirubin 0.7 mg/dL (0.2-1.0) Direct Bilirubin 0.2 mg/dL (0.0-0.2) Aspartate Amino Transferase (AST) 26 U/L (15-37) Alanine Aminotransferase (ALT) 55 U/L (16-63) Alkaline Phosphatase 84 U/L (46-116) Total Protein 8.0 g/dL (6.4-8.2) Albumin 4.2 g/dL (3.4-5.0) Lipase 99 U/L (73-393) Urine Collection Type Unknown Urine Color Yellow Urine Clarity Clear Urine pH 8.5 Urine Specific Joes 1.015 Urine Protein Trace (NEG-TRACE) Urine Glucose (UA) Neg mg/dL (NEG) Urine Ketones (Stick) Neg mg/dL (NEG) Urine Blood Neg (NEG) Urine Nitrite Neg (NEG) Urine Bilirubin Small (NEG) Urine Urobilinogen Dipstick 1.0 mg/dL (0.2 mg/dL) Urine Leukocyte Esterase Neg (NEG) Urine RBC 0 /HPF (0-2) Urine WBC 0 /HPF (0-4) Urine Squamous Epithelial Cells None /LPF Urine Amorphous Sediment Present /HPF Urine Bacteria 0 /HPF (0-FEW) Vital Signs: Vital Signs Date Time Temp Pulse Resp B/P (MAP) Pulse Ox O2 Delivery O2 Flow Rate FiO2 07/16/20 12:07 98.6 104 16 121/88 (99) 98 Room Air EKG: EKG: [] Radiology/Procedures: Radiology/Procedures: [] Heart Score: Risk Factors: Risk Factors: DM, Current or recent (<one month) smoker, HTN, HLP, family history of CAD, obesity. Risk Scores: Score 0 - 3: 2.5% MACE over next 6 weeks - Discharge Home Score 4 - 6: 20.3% MACE over next 6 weeks - Admit for Clinical Observation Score 7 - 10: 72.7% MACE over next 6 weeks - Early Invasive Strategies Course & Med Decision Making: Course & Med Decision Making Pertinent Labs and Imaging studies reviewed. (See chart for details) [] Dragon Disclaimer: Dragon Disclaimer: This electronic medical record was generated, in whole or in part, using a voice recognition dictation system. Departure Departure: Impression: Primary Impression: Abdominal pain Qualified Codes: R10.84 - Generalized abdominal pain Additional Impression: Ulcerative colitis Qualified Codes: K51.919 - Ulcerative colitis, unspecified with unspecified complications Disposition: 01 DC HOME SELF CARE/HOMELESS Condition: STABLE Referrals: CHUCK MARTINEZ DO (PCP) FREDIS REYNA MD Patient Instructions: Chronic Pain Management, Ulcerative Colitis Additional Instructions: Call Dr Rocael Dacosta (pain management) for further evaluation and treatment. Address: [address] [place] [address], [place] [address] Scripts Hydrocodone Bit/Acetaminophen (HYDROCODONE-APAP 5-325 ) 1 Each Tablet 0.5-1 TAB PO PRN Q6HRS PRN for PAIN, #10 TAB 0 Refills Prov: BART GRIFFITHS DO 07/16/20 Prednisone (PREDNISONE) 20 Mg Tablet 2 TAB PO DAILY for Ulcerative Colitis for 7 Days, #14 TAB Prov: BART GRIFFITHS DO 07/16/20 Hyoscyamine Sulfate (LEVSIN-SL) 0.125 Mg Tab.subl 0.125 MG SL Q4-6HRS PRN for PAIN, #14 TAB Prov: BART GRIFFITHS DO 07/16/20 Ondansetron (ONDANSETRON ODT) 4 Mg Tab.rapdis 1 TAB PO PRN Q6-8HRS PRN for NAUSEA, #16 TAB Prov: BART GRIFFITHS DO 07/16/20 BART GRIFFITHS DO Jul 16, 2020 14:28
[2020-07-16] MEDS ORDERED: PRED20TA PO (14:30)
[2020-07-16] MEDS ORDERED: HYDR-2155 PO (14:33)
[2020-07-16] MEDS: HYDROcodone/APAP 5/325MG 1 TAB TABLET PO ONE (14:38)
== END 2020-07-16 14:42 | disposition home or self-care (01) ==
LOC: ER 11:51
DX: K51.919 Ulcerative colitis, unspecified with unspecified complications (principal); R10.84 Generalized abdominal pain; K21.9 Gastro-esophageal reflux disease without esophagitis; F17.210 Nicotine dependence, cigarettes, uncomplicated; F43.10 Post-traumatic stress disorder, unspecified; F10.20 Alcohol dependence, uncomplicated; Z87.442 Personal history of urinary calculi; Z91.010 Allergy to peanuts; Z91.018 Allergy to other foods; Y90.9 Presence of alcohol in blood, level not specified
CPT/HCPCS: 36415; 80047; 80076; 81001; 83690; 83735; 85025; 96361; 96374; 96375; 99284; J1100; J1885; J3490; J7030

== ENCOUNTER → 2021-04-09 | Outpatient (CLI) | payer OTHER ==
[~2021-04-09] MED LIST changes: +PRED20TA PO
--- NOTE | 2021-04-09 15:14 | RAD ---
Exam:Right ribs with PA chest Date: 04/09/2021 2:27 PM Comparison: No prior Indication: Reason: RIGHT ANTERIOR RIB PAIN FALL DOWN STAIRS MONDAY / . Instructions: / History: Findings/ Impression: The heart is not enlarged. Mediastinal and hilar contours are normal. No focal parenchymal airspace o pacity. No pleural effusion or pneumothorax. AP, Oblique and Spot images of the right ribs are negative for acute displaced rib fracture. Negativ e focal pleural elevation. Symmetrical intercostal spacing. It is of note that an acute non-displaced rib fracture can be in-apparent on initial post-trauma imag ing. Electronically signed by: Zane Dsouza MD (04/09/2021 3:12 PM) [id number]
== END ==
LOC: PMG 14:11
PROVIDERS: ATTEND Physician Assistant
DX: S20.211A Contusion of right front wall of thorax, initial encounter (principal); W10.9XXA Fall (on) (from) unspecified stairs and steps, initial encounter; Y93.89 Activity, other specified; Y92.89 Other specified places as the place of occurrence of the external cause; Y99.8 Other external cause status
CPT/HCPCS: 71101